=== PATIENT | male | born 1975 | race African-American/Black ===

== ENCOUNTER 2025-07-24 09:26 | Emergency (ER) | payer BC | END 2025-07-24 11:23 | disposition home or self-care (01) | LOC: NAV ERS 09:26 | DX: M54.50 Low back pain, unspecified (principal); M54.6 Pain in thoracic spine; I11.0 Hypertensive heart disease with heart failure; I50.9 Heart failure, unspecified; F17.210 Nicotine dependence, cigarettes, uncomplicated; V59.40XA Driver of pick-up truck or van injured in collision with unspecified motor vehicles in traffic accident, initial encounter; Z79.899 Other long term (current) drug therapy; Z79.82 Long term (current) use of aspirin | CPT/HCPCS: 72072; 72100; 99284 ==